=== PATIENT | female | born 1980 | race Caucasian/White ===

== ENCOUNTER → 2020-12-03 | Outpatient (CLI) | payer OTHER ==
[~2020-12-03] MED LIST: PROTONIX40 MG PO; ZOFRAN4 MG PO
== END ==
LOC: MAMO 14:00
DX: Z12.31 Encounter for screening mammogram for malignant neoplasm of breast (principal)
CPT/HCPCS: 77063; 77067

== ENCOUNTER → 2020-12-13 | Outpatient (CLI) | payer MEDICARE | LOC: US 13:17 | DX: R92.2 Inconclusive mammogram (principal) | CPT/HCPCS: 76641-LT; 76641-RT ==

== ENCOUNTER 2020-12-20 11:36 | Emergency (ER) | payer MEDICARE ==
[2020-12-20 14:58] LABS: HEMOGLOBIN 12.7 gm/dl (12.3-15.3); RED BLOOD COUNT 4.3 M/UL (4.00-5.10); WHITE BLOOD COUNT 7.2 K/UL (4.5-11.0)
[2020-12-20 15:19] LABS: BUN/CREATININE RATIO 14 (0-10)
[2020-12-20] MEDS ORDERED: PROTONIX40 MG PO (17:41)
[2020-12-20] MEDS ORDERED: ZOFRAN4 MG PO (17:41)
== END 2020-12-20 17:50 | disposition home or self-care (01) ==
LOC: ER1 11:36
PROVIDERS: Preventive Medicine Occupational Medicine
DX: K62.5 Hemorrhage of anus and rectum (principal); R91.1 Solitary pulmonary nodule
CPT/HCPCS: 80053; 83605; 83690; 85025; 85652; 86140; 96374; 99284; C9113; J7030; Q9967

== ENCOUNTER → 2021-03-21 | Day surgery (SDC) | payer MEDICARE ==
[~2021-03-21] VITALS: Ht 167.6 cm; Wt 88.5 kg
[~2021-03-21] MED LIST changes: +CRESTOR5 MG PO; +FLUOXETINE HCL20 M1 PO; +LITHIUM CARBON150 MG PO; +TRAZODONE HCL100 MG PO; +[UNRECOGNIZED DRUG - OTHER] PO
[2021-03-22 16:11] LABS: ENDOMYSIAL ANTIBODY IGA Negative (Negative); IMMUNOGLOBULIN A, QN, SERUM 242 mg/dL (87-352); T-TRANSGLUTAMINASE (TTG) IGA <2 U/mL (0-3)
== END | disposition home or self-care (01) ==
LOC: OR 07:04
PROVIDERS: Internal Medicine Gastroenterology
DX: K62.89 Other specified diseases of anus and rectum (principal); K64.4 Residual hemorrhoidal skin tags; K21.9 Gastro-esophageal reflux disease without esophagitis; E78.00 Pure hypercholesterolemia, unspecified; F43.10 Post-traumatic stress disorder, unspecified; M54.9 Dorsalgia, unspecified; G89.29 Other chronic pain; E66.9 Obesity, unspecified; Z68.32 Body mass index [BMI] 32.0-32.9, adult; Z79.899 Other long term (current) drug therapy
CPT/HCPCS: 36415; 82784; J2250; J2704; J7040

== ENCOUNTER 2021-04-30 08:22 | Emergency (ER) | payer MEDICARE | END 2021-04-30 09:54 | disposition home or self-care (01) | LOC: ER1 08:22 | DX: L76.21 Postprocedural hemorrhage of skin and subcutaneous tissue following a dermatologic procedure (principal); E78.5 Hyperlipidemia, unspecified; Z90.89 Acquired absence of other organs; Z90.49 Acquired absence of other specified parts of digestive tract; Z90.710 Acquired absence of both cervix and uterus | CPT/HCPCS: 99283 ==